=== PATIENT | male | born 1965 | race African-American/Black ===

== ENCOUNTER 2017-07-28 11:36 | Inpatient (IN) | payer BC ==
[~2017-07-28] VITALS: Ht 177.8 cm; Wt 95.7 kg
[2017-07-28] MEDS ORDERED: ACETAMINOPHEN 325MG TABLET PO STA (11:48)
[2017-07-28] MEDS ORDERED: SODIUM CHLORIDE 0.9% 1,000 ML IV ONE (11:48)
[2017-07-28 13:42] LABS: HEMATOCRIT. 37.8 % (42.0-52.0); HEMOGLOBIN. 13.2 g/dL (14.0-18.0); MEAN CORPUSCULAR HEMOGLOBIN 23.4 pg (28.0-32.0); MEAN CORPUSCULAR VOLUME 67.3 fL (80.0-94.0); RED BLOOD CELL COUNT 5.61 mill/uL (4.7-6.1); RED CELL DISTRIBUTION WIDTH 14.9 % (11.6-14.6)
[2017-07-28 13:49] LABS: CHLORIDE 91 mEq/L (98-107)
[2017-07-28] MEDS ORDERED: SODIUM CHLORIDE 0.9% 1000ML BAG (SEPSIS BOLUS) IV ONE (14:00)
[2017-07-28] MEDS ORDERED: ACETAMINOPHEN 325MG TABLET PO ONE (14:00)
[2017-07-28 14:06] LABS: PLATELET ESTIMATE DECREASED
[2017-07-28 14:07] LABS: INR 1.2; PROTHROMBIN TIME 12.6 sec (9.4-11.6)
[2017-07-28 14:08] LABS: MEAN PLATELET VOLUME 8.7 fl (7.4-10.4); PLATELET 58 x1000/uL (130-400)
[2017-07-28] MEDS ORDERED: KCL 10MEQ/50ML PREMIX 50 ML IV ONE (14:15)
[2017-07-28] MEDS ORDERED: KETOROLAC 30MG/ML VIAL IV ONE (14:15)
[2017-07-28] MEDS ORDERED: POTASSIUM CHLORIDE 10MEQ TABLET SR PO SCH (14:15)
[2017-07-28 15:01] LABS: CREATINE KINASE MB FRACTION 3.4 ng/mL (0.5-3.6)
[2017-07-28] MEDS ORDERED: MAGNESIUM 1 G PREMIX 100 ML IV ONE (15:15)
[2017-07-28] MEDS ORDERED: PIPERACILLIN/TAZ 3.375G PREMIX 50 ML IV ONE (15:45)
[2017-07-28] MEDS ORDERED: ASPIRIN 81MG TABLET PO ONE (15:45)
[2017-07-28 18:54] LABS: CLARITY URINE CLOUDY (CLEAR); COLOR URINE DARK YELLOW (YELLOW); KETONES URINE NEGATIVE (NEGATIVE); LEUKOCYTE ESTERASE URINE NEGATIVE (NEGATIVE); NITRITE URINE NEGATIVE (NEGATIVE); OCCULT BLOOD URINE 3+ (NEGATIVE); PH URINE 5.5 (4.5-8.0); PROTEIN URINE 3+ (NEGATIVE); SPECIFIC GRAVITY URINE 1.025 (1.005-1.030); UROBILINOGEN URINE 0.2 E.U./dL (0.2-1.0)
[2017-07-28 18:54] LABS: CHLORIDE 94 mEq/L (98-107)
[2017-07-28] MEDS ORDERED: GUAIFENESIN 200MG/10ML SUGAR FREE UDC PO PRN (19:00)
[2017-07-28] MEDS ORDERED: ACETAMINOPHEN 650MG/20.3ML UDC GT PRN (19:00)
[2017-07-28] MEDS ORDERED: ACETAMINOPHEN 325MG TABLET PO PRN (19:00)
[2017-07-28] MEDS ORDERED: DOCUSATE SODIUM 100MG CAPSULE PO PRN (19:00)
[2017-07-28] MEDS ORDERED: NA PHOS,M-B/NA PHOS,DI-BA ENEMA 118ML PR PRN (19:00)
[2017-07-28] MEDS ORDERED: CLONIDINE 0.1MG TABLET PO PRN (19:00)
[2017-07-28] MEDS ORDERED: IPRATROPIUM/ALBUTEROL 0.5-3(2.5)MG/3ML NEB INH PRN (19:00)
[2017-07-28] MEDS ORDERED: MAGNESIUM/ALUMINUM HYDROXIDE/SIMETHICONE 30ML UDC PO PRN (19:00)
[2017-07-28] MEDS ORDERED: ACETAMINOPHEN 650MG SUPP PR PRN (19:00)
[2017-07-28] MEDS ORDERED: ONDANSETRON HCL 4MG/2ML VIAL IV PRN (19:00)
[2017-07-28] MEDS ORDERED: HYDROCODONE/ACETAMINOPHEN 5/325MG TABLET PO PRN (19:00)
[2017-07-28] MEDS ORDERED: DEXT 5%/0.9% NACL 1,000 ML IV ONE (21:30)
[2017-07-28 21:43] VITALS: BP 101/69
[2017-07-28 21:48] VITALS: BP 101/69
[2017-07-28] MEDS ORDERED: MAGNESIUM 2 G PREMIX 50 ML IV NR (22:00)
[2017-07-28 23:24] LABS: HEMATOCRIT. 37.7 % (42.0-52.0); HEMOGLOBIN. 12.8 g/dL (14.0-18.0); MEAN CORPUSCULAR HEMOGLOBIN 23.6 pg (28.0-32.0); MEAN CORPUSCULAR VOLUME 69.4 fL (80.0-94.0); MEAN PLATELET VOLUME 9.7 fl (7.4-10.4); RED BLOOD CELL COUNT 5.43 mill/uL (4.7-6.1); RED CELL DISTRIBUTION WIDTH 15.3 % (11.6-14.6)
[2017-07-28 23:32] LABS: PLATELET 48 x1000/uL (130-400)
[2017-07-29] VITALS (12 sets, daily range): BP systolic 93–139; BP diastolic 42–96
[2017-07-29] MEDS: POTASSIUM CHLORIDE 20MEQ TABLET SR PO SCH ×2 (01:19→08:13)
[2017-07-29 01:49] LABS: PLATELET ESTIMATE DECREASED
[2017-07-29] MEDS: DEXT 5%/0.9% NACL 1,000 ML IV SCH ×3 (03:02→21:52)
[2017-07-29] MEDS: DIPHENHYDRAMINE 50MG/ML VIAL IV PRN (03:04)
[2017-07-29 07:00] LABS: BASOPHILS % 0.3 % (0.0-2.0); HEMATOCRIT. 35.3 % (42.0-52.0); LYMPHOCYTES % 17.5 % (20.0-50.0); MEAN CORPUSCULAR HEMOGLOBIN 23.6 pg (28.0-32.0); MEAN CORPUSCULAR VOLUME 69.7 fL (80.0-94.0); MEAN PLATELET VOLUME 8.9 fl (7.4-10.4); MONOCYTES % 14.3 % (2.0-8.0); NEUTROPHILS % 67.9 % (40.0-76.0); RED BLOOD CELL COUNT 5.07 mill/uL (4.7-6.1); RED CELL DISTRIBUTION WIDTH 15.5 % (11.6-14.6)
[2017-07-29 07:46] LABS: CHLORIDE 98 mEq/L (98-107)
[2017-07-29 08:02] LABS: CREATINE KINASE 2163 IU/L (39-308); HDL CHOLESTEROL 8 mg/dL (40-59); LDL CHOLESTEROL 41 mg/dL (5-100)
[2017-07-29] MEDS: MAGNESIUM OXIDE 400MG TABLET PO SCH (08:13)
[2017-07-29 08:14] LABS: PLATELET 45 x1000/uL (130-400)
[2017-07-29 10:17] LABS: *AMPHETAMINES SCREEN URINE NEGATIVE (NEGATIVE); *BARBITURATES SCREEN URINE NEGATIVE (NEGATIVE); *BENZODIAZEPINES SCREEN URINE NEGATIVE (NEGATIVE); *COCAINE SCREEN URINE NEGATIVE (NEGATIVE); CANNABINOID URINE SCREEN NEGATIVE (NEGATIVE); METHADONE URINE SCREEN NEGATIVE (NEGATIVE); OPIATES URINE SCREEN NEGATIVE (NEGATIVE); PHENCYCLIDINE URINE SCREEN NEGATIVE (NEGATIVE)
[2017-07-29 11:37] LABS: AMMONIA 32 uMol/L (<32)
[2017-07-29 11:39] LABS: HEPATITIS B SURFACE ANTIGEN NEGATIVE
[2017-07-29] MEDS ORDERED: VANCOMYCIN 1500MG in DEXTROSE 5% WATER 250ML IV SCH (12:00)
[2017-07-29 12:06] LABS: HEPATITIS B CORE AB IGM NEGATIVE
[2017-07-29 12:08] LABS: HEPATITIS A AB IGM NEGATIVE (NEGATIVE)
[2017-07-29] MEDS: CEFTRIAXONE 1 G PREMIX 50 ML IV SCH (12:10)
[2017-07-29] MEDS: VANCOMYCIN 1250MG in DEXTROSE 5% WATER 250ML IV SCH (22:18)
[2017-07-30] VITALS (12 sets, daily range): BP systolic 125–136; BP diastolic 77–99
[2017-07-30 05:41] LABS: HEMATOCRIT. 35.3 % (42.0-52.0); HEMOGLOBIN. 11.9 g/dL (14.0-18.0); MEAN CORPUSCULAR HEMOGLOBIN 23.1 pg (28.0-32.0); MEAN CORPUSCULAR VOLUME 68.9 fL (80.0-94.0); MEAN PLATELET VOLUME 9.1 fl (7.4-10.4); PLATELET 53 x1000/uL (130-400); RED BLOOD CELL COUNT 5.13 mill/uL (4.7-6.1); RED CELL DISTRIBUTION WIDTH 15.4 % (11.6-14.6)
[2017-07-30 07:14] LABS: CHLORIDE 100 mEq/L (98-107)
[2017-07-30 07:29] LABS: CREATINE KINASE 841 IU/L (39-308); PHOSPHORUS 1.7 mg/dL (2.5-4.9)
[2017-07-30] MEDS: MAGNESIUM OXIDE 400MG TABLET PO SCH (09:10)
[2017-07-30] MEDS: POTASSIUM CHLORIDE 20MEQ TABLET SR PO SCH ×2 (09:10→20:15)
[2017-07-30] MEDS: VANCOMYCIN 1250MG in DEXTROSE 5% WATER 250ML IV SCH ×2 (09:11→20:14)
[2017-07-30] MEDS: CEFTRIAXONE 1 G PREMIX 50 ML IV SCH (09:11)
[2017-07-30 10:01] LABS: PLATELET ESTIMATE DECREASED
[2017-07-30] MEDS: DEXT 5%/0.9% NACL 1,000 ML IV SCH ×2 (11:41→14:33)
[2017-07-30] MEDS ORDERED: POTASSIUM PHOS,M-BASIC-D-BASIC 30 MMOL in SODIUM CHLORIDE 0.9% 500 ML IV NR (12:00)
[2017-07-30] MEDS: DIPHENHYDRAMINE 50MG/ML VIAL IV PRN (23:51)
[2017-07-31] VITALS (10 sets, daily range): BP systolic 128–147; BP diastolic 75–96
[2017-07-31 06:51] LABS: HEMATOCRIT. 34.9 % (42.0-52.0); HEMOGLOBIN. 11.6 g/dL (14.0-18.0); MEAN CORPUSCULAR VOLUME 69.1 fL (80.0-94.0); MEAN PLATELET VOLUME 9.3 fl (7.4-10.4); PLATELET 91 x1000/uL (130-400); RED BLOOD CELL COUNT 5.05 mill/uL (4.7-6.1); RED CELL DISTRIBUTION WIDTH 15.1 % (11.6-14.6)
[2017-07-31 07:21] LABS: CHLORIDE 100 mEq/L (98-107)
[2017-07-31 07:33] LABS: PHOSPHORUS 2.7 mg/dL (2.5-4.9)
[2017-07-31] MEDS: MAGNESIUM OXIDE 400MG TABLET PO SCH (08:36)
[2017-07-31] MEDS: POTASSIUM CHLORIDE 20MEQ TABLET SR PO SCH (08:36)
[2017-07-31] MEDS: VANCOMYCIN 1250MG in DEXTROSE 5% WATER 250ML IV SCH (08:36)
[2017-07-31] MEDS: CEFTRIAXONE 1 G PREMIX 50 ML IV SCH (08:36)
[2017-07-31] MEDS: DEXT 5%/0.9% NACL 1,000 ML IV SCH (10:16)
[2017-07-31 11:55] LABS: PLATELET ESTIMATE DECREASED
[2017-07-31] MEDS ORDERED: VANCOMYCIN 1250MG in DEXTROSE 5% WATER 250ML IV SCH (14:00)
[2017-07-31] MEDS ORDERED: LEVOFLOXACIN 250MG TABLET PO NR (15:30)
[2017-08-01] MEDS ORDERED: CEFTRIAXONE 2 G in DEXTROSE 5% WATER 50 ML IV SCH (09:00)
== END 2017-07-31 17:15 | disposition home or self-care (01) | DRG 871 ==
LOC: ER 12:50 → 5WST 14:30 → ENRESERV 18:53 → 5EST 22:51
PROVIDERS: ADMIT Internal Medicine; ATTEND Internal Medicine
DX: A40.1 Sepsis due to streptococcus, group B (principal); I50.33 Acute on chronic diastolic (congestive) heart failure; D61.818 Other pancytopenia; N17.9 Acute kidney failure, unspecified; E46 Unspecified protein-calorie malnutrition; D69.6 Thrombocytopenia, unspecified; E83.39 Other disorders of phosphorus metabolism; E87.1 Hypo-osmolality and hyponatremia; M62.82 Rhabdomyolysis; E86.0 Dehydration; E86.1 Hypovolemia; R16.2 Hepatomegaly with splenomegaly, not elsewhere classified; E87.6 Hypokalemia; B96.89 Other specified bacterial agents as the cause of diseases classified elsewhere; F17.210 Nicotine dependence, cigarettes, uncomplicated; I45.10 Unspecified right bundle-branch block; I11.0 Hypertensive heart disease with heart failure; R74.0 Nonspecific elevation of levels of transaminase and lactic acid dehydrogenase [LDH]; Z83.3 Family history of diabetes mellitus; Z86.2 Personal history of diseases of the blood and blood-forming organs and certain disorders involving the immune mechanism; Z87.440 Personal history of urinary (tract) infections; Z79.899 Other long term (current) drug therapy; Z71.6 Tobacco abuse counseling; Z71.41 Alcohol abuse counseling and surveillance of alcoholic; Z68.30 Body mass index [BMI] 30.0-30.9, adult
CPT/HCPCS: 36415; 70450; 71045; 76700; 80048; 80053; 80061; 80202; 80305; 81003; 82010; 82140; 82533; 82550; 82553; 82570; 83036; 83605; 83690; 83735; 83880; 83935; 84100; 84300; 84439; 84443; 84484; 85025; 85610; 85651; 86140; 86705; 86709; 86803; 87040; 87077; 87086; 87186; 87340; 87804; 93005; 93306; J0696; J1200; J1885; J2405; J2543; J3370; J3475; J3480; J3490; J7030; J7040; J7042; J7060

== ENCOUNTER 2017-08-09 15:18 | Emergency (ER) | payer BC ==
[~2017-08-09] VITALS: Ht 177.8 cm; Wt 96.0 kg
[2017-08-09 15:38] VITALS: BP 141/75
== END 2017-08-09 22:00 | disposition left against medical advice (07) ==
LOC: ER 15:18
DX: M25.572 Pain in left ankle and joints of left foot (principal); M25.472 Effusion, left ankle; Z53.21 Procedure and treatment not carried out due to patient leaving prior to being seen by health care provider